=== PATIENT | male | born 1930 | race Caucasian/White ===

== ENCOUNTER → 2018-02-04 | Outpatient (CLI) | payer MEDICARE ==
[~2018-02-04] MED LIST: LEVOTHYROXINE75 MCG PO; SERTRALINE HCL100 MG PO; TERAZOSIN HCL5 MG; TERAZOSIN HCL5 MG PO; TRAZODONE HCL100 MG; TRAZODONE HCL100 MG PO; UNITHROID75 MCG; ZOLOFT100 MG
--- NOTE | 2018-02-04 15:32 | Diagnostic Imaging Report ---
EXAMINATION: Head CT HISTORY: Status post fall. Head trauma, pain, dizziness COMPARISON: Head CT on 08/14/2017 TECHNIQUE: Multidetector axial images were obtained without contrast from the foramen magnum to the vertex . The images were reconstructed using brain and bone algorithms. Thin section brain images were reformatted into coronal and sagittal planes. Intravenous contrast: None. Motion/streaking artifact limits the evaluation of the skull base and posterior cranial fossa. FINDINGS: Parenchyma: 1. 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 Mild chronic microvascular ischemic changes mostly in the bilateral subinsular regions. Otherwise no areas of abnormal density in the brain parenchyma. 2. No mass or hemorrhage. No CT evidence of acute territorial vascular insult. Extra-axial spaces:No abnormal density. No extra-axial fluid collections Brain volume: Generalized brain volume loss with mild bilateral medial temporal/hippocampal predominance, which can be seen in patients with Alzheimer's disease, only in the appropriate clinical setting. Ventricles: No hydrocephalus or displacement. Arteries: No density suggestive of thrombus. Dural sinuses: No abnormal density. Extra-axial spaces: No abnormal density. Foramen magnum: No mass, Chiari malformation, or basilar invagination. Sella: No obvious mass. Paranasal/mastoid sinuses: Imaged portions unremarkable. Skull/Scalp: No lytic or blastic lesions. No fractures. IMPRESSION: 1. No acute posttraumatic intracranial abnormality, particularly no hemorrhage. 2. 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 Signed by: Dr. Milena Vora M.D. on 02/04/2018 3:29 PM
== END ==
LOC: CT 13:38
PROVIDERS: ATTEND Family Medicine
DX: S09.90XA Unspecified injury of head, initial encounter (principal)
CPT/HCPCS: 70450

== ENCOUNTER → 2018-03-01 | Outpatient (CLI) | payer MEDICARE | LOC: RAD 13:15 | PROVIDERS: ATTEND Family Medicine | DX: R10.11 Right upper quadrant pain (principal) ==

== ENCOUNTER 2018-07-30 18:14 | Inpatient (IN) | payer MEDICARE ==
[~2018-07-30] VITALS: Ht 175.3 cm; Wt 70.8 kg
[2018-07-30] MEDS ORDERED: FAMOTIDINE 20 MG/2 ML VIAL IV STA (18:20)
[2018-07-30] MEDS ORDERED: ONDANSETRON HCL INJ 2 MG/ML VIAL IV STA (18:20)
[2018-07-30] MEDS ORDERED: SODIUM CHLORIDE 0.9% 1000ML 2,000 ML IV SCH (18:30)
[2018-07-30] MEDS ORDERED: DIATRIZOATE MEGL/DIATRIZOA SOD 30 ML BTL PO ONE (18:42)
[2018-07-30 18:57] LABS: BASOPHILS % 0.4 % (0.0-1.0); EOSINOPHILS # (AUTO) 0.1 (0.0-0.4); EOSINOPHILS % 0.6 % (0.0-6.0); HEMATOCRIT 36.6 % (38.2-49.6); HEMOGLOBIN 11.9 g/dL (14.0-18.0); LYMPHOCYTES % 17.8 % (18.0-39.1); MEAN CORPUSCULAR HEMOGLOBIN 32.6 pg (28-32); MEAN CORPUSCULAR HGB CONC 32.5 g/dL (31-35); MEAN CORPUSCULAR VOLUME 100.3 fL (81-99); MONOCYTES # (AUTO) 0.7 (0.2-0.8); MONOCYTES % 6.2 % (4.4-11.3); NEUTROPHILS # (AUTO) 8.2 (2.1-6.9); NEUTROPHILS % 74.2 % (38.7-80.0); PLATELET COUNT 157 x10e3/uL (140-360); RED BLOOD COUNT 3.65 x10e6/uL (4.3-5.7); RED CELL DISTRIBUTION WIDTH 13.8 % (11.7-14.4)
[2018-07-30 19:09] LABS: INR 1.22; PROTHROMBIN TIME 14.5 seconds (11.9-14.5)
[2018-07-30 19:10] LABS: PARTIAL THROMBOPLASTIN TIME 28.3 seconds (23.8-35.5)
[2018-07-30 19:10] LABS: BILIRUBIN,URINE NEGATIVE (NEGATIVE); CLARITY,URINE SL CLOUDY (CLEAR); COLOR,URINE YELLOW (YELLOW); KETONES,URINE NEGATIVE (NEGATIVE); LEUKOCYTE ESTERASE ,URINE NEGATIVE (NEGATIVE); NITRITE,URINE NEGATIVE (NEGATIVE); PROTEIN,URINE DIPSTICK 1+ (NEGATIVE); URINE UROBILINOGEN 0.2 mg/dL (0.2 - 1)
[2018-07-30 19:20] LABS: ALBUMIN 3.7 g/dL (3.5-5.0); ALBUMIN/GLOBULIN RATIO 1.2 (0.8-2.0); ANION GAP 14.2 mmol/L (8-16); CALCIUM 10.4 mg/dL (8.4-10.2); CREATININE, SERUM 1.31 mg/dL (0.72-1.25); MAGNESIUM 2.1 MG/DL (1.3-2.1); PHOSPHORUS 3.1 MG/DL (2.3-4.7); POTASSIUM 4.2 mmol/L (3.5-5.1)
[2018-07-30 19:25] LABS: BACTERIA,URINE FEW /HPF; EPITHELIAL CELLS,URINE MODERATE /LPF
[2018-07-30 19:33] LABS: B-TYPE NATRIURETIC PEPTIDE2 314.6 pg/mL (0-100)
[2018-07-30 19:43] LABS: THYROID STIMULATING HORMONE 1.503 uIU/mL (0.350-4.940)
[2018-07-30 20:05] LABS: CREATINE KINASE MB 1.6 ng/mL (0-5.0)
--- NOTE | 2018-07-30 20:32 | Diagnostic Imaging Report ---
EXAMINATION: CHEST SINGLE (PORTABLE) COMPARISON: Chest x-ray 08/14/2017 INDICATION: Shortness of breath DISCUSSION: Frontal view of the chest obtained at 2010 hours. HEART AND MEDIASTINUM: Stable cardiomegaly. Pacemaker wires are stable terminating in the right atrium and right ventricle. LUNGS: Pulmonary vascular markings are normal. No mass. No pneumonia or pulmonary edema. PLEURA: No pleural effusion or pneumothorax. BONES AND SOFT TISSUES: No focal osseous lesion. The soft tissues are normal. IMPRESSION: Stable cardiomegaly. No vascular congestion. No focal osseous lesions. Signed by: Dr. Edd Cartagena MD on 07/30/2018 8:28 PM
--- NOTE | 2018-07-30 20:37 | Diagnostic Imaging Report ---
EXAMINATION: Head CT HISTORY: Altered mental status, syncope COMPARISON: Head CT on 02/04/2018 TECHNIQUE: Multidetector axial images were obtained without contrast from the foramen magnum to the vertex . The images were reconstructed using brain and bone algorithms. Thin section brain images were reformatted into coronal and sagittal planes. Image quality: Motion/streaking artifact limits the evaluation of the skull base and posterior cranial fossa. Dose modulation, iterative reconstruction, and/or weight based adjustment of the mA/kV was utilized to reduce the radiation dose to as low as reasonably achievable. FINDINGS: Parenchyma: 1. Persistent mild chronic microvascular ischemic changes mostly involving the bilateral subinsular regions and chronic lacunar infarct in the right medial thalamus. 2. No mass or hemorrhage. No CT evidence of acute territorial vascular insult. Extra-axial spaces:No abnormal density. No extra-axial fluid collections Brain volume: Persistent generalized volume loss, with particular prominence of the parietal sulci, bilateral temporal horns and bilateral hippocampal atrophy, which can be seen in patient's with Alzheimer's disease in the correct clinical setting. Ventricles: No hydrocephalus or displacement. Arteries: No density suggestive of thrombus. Dural sinuses: No abnormal density. Extra-axial spaces: No abnormal density. Foramen magnum: No mass, Chiari malformation, or basilar invagination. Sella: No obvious mass. Paranasal/mastoid sinuses: Imaged portions unremarkable. Skull/Scalp: No lytic or blastic lesions. No fractures. IMPRESSION: 1. No acute intracranial hemorrhage or cortical infarct. 2. 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 Signed by: Dr. Milena Vora M.D. on 07/30/2018 8:34 PM
--- NOTE | 2018-07-30 20:43 | Diagnostic Imaging Report ---
CT Abdomen And Pelvis with Intravenous Contrast INDICATION: Altered level of consciousness, left lower quadrant pain TECHNIQUE: Thin collimation axial images obtained from the diaphragm to the level of the pubic symphysis following the uneventful administration of 100 cc of low osmolar, nonionic intravenous contrast. RADIATION DOSE: Total DLP: 294.2 mGy*cm Estimated effective dose: (DLP x 0.015 x size factor) mSv CTDIvol has been reviewed. It is below the limits set by the Radiation Protocol Committee (RPC). COMPARISON: None. ABDOMEN FINDINGS: Lung Bases: Lung bases are mildly hyperinflated. There is subsegmental atelectasis in the lower lobes. The descending thoracic aorta is ectatic and contains mural plaque. Maximum diameter is 4.1 cm. The heart is enlarged and contains pacemaker wires and coronary artery calcifications. No pericardial or pleural effusions. Liver: Normal attenuation. Unilocular cysts in the left lobe measure up to 5.4 cm. There are subcentimeter cysts in the right lobe. Gallbladder: Present and appears normal. No biliary ductal dilatation. Pancreas: Normal attenuation without mass or ductal dilatation. Spleen: Normal in size. No evidence of mass.. Adrenal Glands: No evidence for mass. Kidneys: Right: Normal enhancement. Several low attenuating cortical lesions measure up to 15 mm. No enhancing lesions. No hydronephrosis. Left: Normal enhancement. A lower pole cyst measures 18 mm. No enhancing lesions. No hydronephrosis. Lymph Nodes: No enlarged abdominal or retroperitoneal lymph nodes.. Aorta: Diffusely ectatic. The infrarenal aorta has a maximum diameter of 4.1 cm. Calcified and noncalcified plaques are present throughout. PELVIS FINDINGS: Bowel: Stomach: Distended with fluid. No mural thickening. Small Bowel: Multiple fluid-filled small bowel loops in the midabdomen measure up to 3.5 cm in diameter. The transition point is in the lower pelvis (axial image 65). There is no associated mass. There is no evidence of pneumatosis. Distal to this, the small bowel loops are collapsed. There is normal mural enhancement. Large Bowel: Chain sutures in the rectosigmoid colon. The large bowel is concentrated in the right hemiabdomen suggestive of hemicolectomy and primary anastomosis. A few scattered diverticula are present without associated inflammation. Appendix: Not visualized. There is a linear calcification or chain sutures at the base of the cecum. Bladder: The gonsalez are diffusely thickened. A Dunn catheter is present with intraluminal air. The prostate gland measures 5.2 x 5.5 cm. Small amount of pelvic ascites. No loculated fluid collection. No free air. Bones: Scoliosis of the lumbar spine convex to the right with superimposed degenerative changes. There are no lytic or blastic lesions. Soft tissues: Unremarkable. IMPRESSION: 1. Dilated small bowel loops suggestive of high-grade partial small bowel obstruction, possibly due to adhesion. No CT evidence of obstructing mass. 2. 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 3. Low attenuating hepatic and renal lesions are likely cysts. 4. Prostate hypertrophy and bladder wall thickening suggestive of outlet obstruction. 5. Postoperative changes of the large bowel. Mild burden of diverticulosis coli. Nonvisualization of the appendix. Please correlate with surgical history of appendectomy. Signed by: Dr. Edd Cartagena MD on 07/30/2018 8:39 PM
[2018-07-30] MEDS ORDERED: BENZOCAINE/TETRACAINE/BUTAMBEN AERO SPRAY 56 GM CAN TOP ONE (21:00)
[2018-07-30] MEDS ORDERED: ONDANSETRON HCL INJ 2 MG/ML VIAL IV PRN (21:15)
[2018-07-30] MEDS ORDERED: MORPHINE SULFATE 2 MG/ML SYR IV PRN (21:15)
[2018-07-30] MEDS ORDERED: LIDOCAINE VISC 2% SOLN 15 ML UDC ONE (21:19)
[2018-07-30 21:59] VITALS: BP 139/65
[2018-07-30] MEDS ORDERED: SODIUM CHLORIDE 0.9% 50ML 50 ML ONE (22:19)
[2018-07-30] MEDS ORDERED: IOPAMIDOL 370 MG/ML 200 ML INFUS..BTL INJ ONE (22:19)
[2018-07-30] MEDS: SODIUM CHLORIDE 0.9% 1000ML 1,000 ML IV SCH (22:30)
[2018-07-30] MEDS ORDERED: RAMIPRIL5 MG PO (23:37)
[2018-07-31] VITALS (9 sets, daily range): BP systolic 118–182; BP diastolic 53–77
--- NOTE | 2018-07-31 02:23 | Diagnostic Imaging Report ---
EXAM: ABDOMEN-1VIEW (KUB) DATE: 07/31/2018 1:15 AM Time stamp on exam: 1:45 AM INDICATION: NG tube placement COMPARISON: None FINDINGS: LINES/TUBES: NG tube is visualized with tip at the level of the lower/distal esophagus. Advancement is recommended BOWEL PATTERN: No evidence for obstruction. SOFT TISSUES: There is opacification of the bilateral renal collecting systems, distal ureters and partially decompressed bladder. LUNG BASES: The lung bases are clear. BONES: Severe degenerative changes of the lower thoracic and lumbar spine with severe dextrorotoscoliosis. IMPRESSION: NG tube remains within the lower thorax. Advancement into the left upper quadrant is recommended Signed by: Dr. Jay Arevalo M.D. on 07/31/2018 2:20 AM
[2018-07-31 05:18] LABS: BASOPHILS % 0.1 % (0.0-1.0); HEMATOCRIT 35.7 % (38.2-49.6); HEMOGLOBIN 11.9 g/dL (14.0-18.0); LYMPHOCYTES # (AUTO) 0.6 (1.0-3.2); LYMPHOCYTES % 4.3 % (18.0-39.1); MEAN CORPUSCULAR HEMOGLOBIN 33.1 pg (28-32); MEAN CORPUSCULAR HGB CONC 33.3 g/dL (31-35); MEAN CORPUSCULAR VOLUME 99.4 fL (81-99); MONOCYTES # (AUTO) 0.7 (0.2-0.8); MONOCYTES % 4.7 % (4.4-11.3); NEUTROPHILS # (AUTO) 12.8 (2.1-6.9); NEUTROPHILS % 89.9 % (38.7-80.0); PLATELET COUNT 140 x10e3/uL (140-360); RED BLOOD COUNT 3.59 x10e6/uL (4.3-5.7); RED CELL DISTRIBUTION WIDTH 13.9 % (11.7-14.4)
[2018-07-31 05:41] LABS: ALANINE AMINOTRANSFERASE 11 IU/L (0-55); ALBUMIN 3.7 g/dL (3.5-5.0); ALBUMIN/GLOBULIN RATIO 1.3 (0.8-2.0); ALKALINE PHOSPHATASE 61 IU/L (40-150); ANION GAP 14.1 mmol/L (8-16); BLOOD UREA NITROGEN 16 mg/dL (7-26); BUN/CREATININE RATIO 16 (6-25); CARBON DIOXIDE 24 mmol/L (22-29); CHLORIDE 104 mmol/L (98-107); CREATININE, SERUM 1.03 mg/dL (0.72-1.25); EST GLOMERULAR FILTRATION RATE > 60 ML/MIN (60-); GLUCOSE 137 mg/dL (74-118); POTASSIUM 4.1 mmol/L (3.5-5.1); SODIUM 138 mmol/L (136-145)
[2018-07-31 06:06] LABS: CREATINE KINASE MB 1.8 ng/mL (0-5.0)
--- NOTE | 2018-07-31 06:37 | Diagnostic Imaging Report ---
EXAM: ABDOMEN COMP INCL UPR or DECUB DATE: 07/31/2018 8:00 AM Time stamp on exam: 4:42 AM INDICATION: Partial small bowel obstruction. COMPARISON: 07/31/2018 at 1:45 AM FINDINGS: LINES/TUBES: NG tube is visualized with tip at the level of the gastric body. BOWEL PATTERN: No evidence for obstruction. SOFT TISSUES: There is opacification of the bilateral renal collecting systems, distal ureters and partially decompressed bladder. Surgical sutures noted at the level of the rectum. LUNG BASES: The lung bases are clear. BONES: Severe degenerative changes of the lower thoracic and lumbar spine with severe dextrorotoscoliosis. IMPRESSION: 1. NG tube is now in optimal position. 2. No evidence of obstructive bowel gas pattern Signed by: Dr. Jay Arevalo M.D. on 07/31/2018 6:34 AM
[2018-07-31 07:28] LABS: MAGNESIUM 1.9 MG/DL (1.3-2.1)
--- NOTE | 2018-07-31 07:28 | History and Physical ---
An 87-year-old male comes in with confusion and abdominal pain and cramping. HISTORY OF PRESENT ILLNESS: This is an 87-year-old gentleman with a history of PTSD, history of hypertension, history of hypothyroidism, was in his usual state of health until 1 day prior to admission. The patient started having abdominal pain, nausea and cramping. The patient vomited several times and had sharp upper suprapubic and left lower quadrant pain. The patient was brought to the emergency room and was admitted for small-bowel obstruction. The patient's hemodynamics before arrival to the floor was blood pressure was 70/40, heart rate 60 and with a paced rhythm, O2 on nasal cannula. The patient came in, and once the fluid was resuscitated, the patient's blood pressure did come up. PAST MEDICAL HISTORY: History of hypothyroidism, history of hypertension, history of posttraumatic stress disorder. SURGICAL HISTORY: Cannot be taken, but the patient had cataract surgery, history of diverticulitis and colon resection, history of multiple cysts removed, history of tonsillectomy, and skin cancer removal. The patient also had pacemaker placement too. MEDICATIONS 1. Levothyroxine 75 mcg. 2. Ramipril 1.25 mg. 3. Sertraline 100 mg daily. SOCIAL HISTORY: Lives with who is the primary logistics analytics manager. The patient also has a history of PTSD. No smoking. No ETOH. Has dementia. FAMILY HISTORY: Noncontributory. REVIEW OF SYSTEMS: Unable to obtain. The patient has an NG tube and also has dementia. PHYSICAL EXAMINATION VITAL SIGNS: The patient's initial vital signs are temperature is 100.7. Right now, blood pressure is 118/53, pulse ox 96%. HEENT: Normocephalic and atraumatic. Pupils reactive to light and accommodation. CV: S1 and S2 normal. Regular rate and rhythm. ABDOMEN: Soft. Bowel sounds are positive right now. Tenderness in the suprapubic and left lower quadrant. EXTREMITIES: No clubbing. No cyanosis. No edema. LABORATORY VALUES: Initial white count of 11,000 and right now is 14,000, hemoglobin of 11.9. Neutrophil count is 89.9, which has jumped yesterday from today. Coags are normal. Chemistries: Sodium is 139, potassium 4.2, creatinine of 1.3 on arrival. Lactic acid is 14.9. BNP was 314.6. TSH is 1.403. Urine showed negative leukocytes and esterase. Nitrate was negative, hyaline casts and also urine bacteria. The patient's initial chest x-ray showed stable cardiomegaly. Abdominal CT scan shows dilated small loops suggestive of high-grade partial small-bowel obstruction possibly secondary to adhesions. No CT enhancing masses. Fusiform aneurysmal dilatation. Prostate hypertrophy and low attenuation of renal cysts. There is mild diverticulosis too. The patient's repeat abdominal x-ray shows NG tube was suboptimal and now is in optimal position. No evidence of obstructive bowel pattern. PLAN: Start the patient on some Levaquin and Flagyl. He has multiple allergies, including amoxicillin, cephalexin, and acid. Will discontinue his medications right now. NG tube has been inserted. Consult with Dr. Torres has been done. Will also order magnesium, amylase and lipase. Further recommendations per clinical course. Will continue monitoring the patient along with surgery. Job#: [id number] MELINDA
[2018-07-31] MEDS: LEVOFLOXACIN 250MG/D5W 50ML 50 ML IV SCH (08:56)
[2018-07-31] MEDS ORDERED: ACETAMINOPHEN 1000 MG/100 ML IV PRN (09:00)
--- NOTE | 2018-07-31 12:13 | Diagnostic Imaging Report ---
EXAM: Abdomen 1 Views INDICATION: \S\NG TUBE PLACEMENT COMPARISON: KUB 07/31/2018 at 442 FINDINGS: Mild amount of stool in the colon. No dilated loops of small bowel. Bowel sutures in the low pelvis. Partially visualized NG tube with tip at the GE junction. No renal calculi. Contrast in the bladder with a partially visualized Dunn catheter. No abnormal soft tissue masses. Severe degenerative changes with scoliotic changes in the lumbar spine and pelvis. IMPRESSION: NG tube tip at the GE junction. Signed by: Dr. Daniel Orta M.D. on 07/31/2018 12:10 PM
[2018-07-31] MEDS: METRONIDAZOLE 500MG/NS 100ML 100 ML IV SCH ×3 (12:58→23:43)
[2018-07-31 13:50] LABS: CREATINE KINASE MB 1.4 ng/mL (0-5.0)
--- NOTE | 2018-07-31 14:48 | Diagnostic Imaging Report ---
Exam: Abdominal film Clinical History: NG tube placement Comparison: Earlier 07/31/2018 DISCUSSION: Limited exam secondary to underpenetration and motion artifact. Nasogastric tube is again visualized. The tip is not visualized caudal to the distal esophagus. Otherwise unchanged appearance of the bowel gas pattern and skeletal structures. IMPRESSION: Nasogastric tube is difficult to visualize, though the tip likely lies at the gastroesophageal junction. Signed by: Dr. Theo Tafoya M.D. on 07/31/2018 2:45 PM
--- NOTE | 2018-07-31 16:58 | Diagnostic Imaging Report ---
EXAM: Abdomen 1 Views INDICATION: \S\NG TUBE PLACEMENT COMPARISON: NG tube 07/31/2018 at 1421 and 1131 FINDINGS: Mild amount of stool in the colon. No dilated loops of small bowel. NG tube in the stomach with side-port just below the level of the diaphragm. No renal calculi. No abnormal soft tissue masses. Bowel sutures in the pelvis. Severe degenerative changes in the lumbar spine and pelvis. IMPRESSION: NG tube in the stomach with side-port just below the level of the diaphragm. Signed by: Dr. Daniel Orta M.D. on 07/31/2018 4:54 PM
[2018-07-31] MEDS: SODIUM CHLORIDE 0.9% 1000ML 1,000 ML IV SCH ×2 (17:49→23:35)
[2018-07-31] MEDS: BISACODYL 10 MG SUPP PR SCH (20:01)
[2018-08-01] VITALS (7 sets, daily range): BP systolic 133–168; BP diastolic 73–84
[2018-08-01] MEDS: MORPHINE SULFATE INJ 4 MG/ML INJ IV PRN ×2 (01:20→10:20)
[2018-08-01 05:15] LABS: BASOPHILS % 0.2 % (0.0-1.0); EOSINOPHILS # (AUTO) 0.1 (0.0-0.4); EOSINOPHILS % 0.5 % (0.0-6.0); HEMOGLOBIN 11.7 g/dL (14.0-18.0); LYMPHOCYTES # (AUTO) 1.6 (1.0-3.2); LYMPHOCYTES % 13.2 % (18.0-39.1); MEAN CORPUSCULAR HEMOGLOBIN 32.8 pg (28-32); MEAN CORPUSCULAR HGB CONC 31.6 g/dL (31-35); MEAN CORPUSCULAR VOLUME 103.6 fL (81-99); MONOCYTES # (AUTO) 0.9 (0.2-0.8); MONOCYTES % 7.3 % (4.4-11.3); NEUTROPHILS # (AUTO) 9.5 (2.1-6.9); NEUTROPHILS % 78.1 % (38.7-80.0); PLATELET COUNT 114 x10e3/uL (140-360); RED BLOOD COUNT 3.57 x10e6/uL (4.3-5.7); RED CELL DISTRIBUTION WIDTH 13.9 % (11.7-14.4)
[2018-08-01] MEDS: METRONIDAZOLE 500MG/NS 100ML 100 ML IV SCH ×3 (05:31→18:10)
[2018-08-01 05:52] LABS: ALANINE AMINOTRANSFERASE 9 IU/L (0-55); ALBUMIN 3.3 g/dL (3.5-5.0); ALBUMIN/GLOBULIN RATIO 1.1 (0.8-2.0); ALKALINE PHOSPHATASE 55 IU/L (40-150); ANION GAP 10.5 mmol/L (8-16); BLOOD UREA NITROGEN 14 mg/dL (7-26); BUN/CREATININE RATIO 17 (6-25); CALCIUM 9.6 mg/dL (8.4-10.2); CARBON DIOXIDE 25 mmol/L (22-29); CHLORIDE 108 mmol/L (98-107); CREATININE, SERUM 0.83 mg/dL (0.72-1.25); EST GLOMERULAR FILTRATION RATE > 60 ML/MIN (60-); GLUCOSE 83 mg/dL (74-118); POTASSIUM 3.5 mmol/L (3.5-5.1); SODIUM 140 mmol/L (136-145)
[2018-08-01] MEDS: LEVOFLOXACIN 250MG/D5W 50ML 50 ML IV SCH (08:56)
[2018-08-01] MEDS: BISACODYL 10 MG SUPP PR SCH (08:57)
[2018-08-01] MEDS: SERTRALINE HCL 100 MG TAB PO ONE ×2 (10:15→12:00)
[2018-08-01] MEDS: SODIUM CHLORIDE 0.9% 1000ML 1,000 ML IV SCH (11:56)
--- NOTE | 2018-08-01 17:24 | Diagnostic Imaging Report ---
EXAM: Abdomen 3 Views, including PA chest INDICATION: \S\SBO \[id number] \S\1600 COMPARISON: KUB 07/31/2018 FINDINGS: Mild amount of stool in the colon. Mild progressive distention of a few loops of bowel mainly in the right abdomen. Surgical sutures overlying the pelvis at midline. No renal calculi. No abnormal soft tissue masses. Advanced degenerative changes in the lumbar spine and pelvis. Scoliosis. Partially visualized pacer leads overlying the right atrial appendage and right ventricle. Mild enlargement of the cardiac silhouette. Tortuous thoracic aorta. Bibasilar atelectasis. IMPRESSION: 1. Progressive mild distention of the bowel, mainly in the right abdomen may represent ileus or early obstruction. 2. NG tube has been removed. Signed by: Dr. Uzma Gilman M.D. on 08/01/2018 5:21 PM
[2018-08-02] VITALS (7 sets, daily range): BP systolic 126–173; BP diastolic 58–87
[2018-08-02] MEDS: METRONIDAZOLE 500MG/NS 100ML 100 ML IV SCH ×4 (00:50→17:53)
[2018-08-02] MEDS: MORPHINE SULFATE INJ 4 MG/ML INJ IV PRN ×3 (00:50→23:42)
[2018-08-02] MEDS: SODIUM CHLORIDE 0.9% 1000ML 1,000 ML IV SCH ×2 (03:26→17:52)
[2018-08-02] MEDS: HYDRALAZINE HCL 20 MG/ML VIAL IV PRN (05:21)
[2018-08-02 05:26] LABS: BASOPHILS % 0.4 % (0.0-1.0); EOSINOPHILS # (AUTO) 0.1 (0.0-0.4); EOSINOPHILS % 0.8 % (0.0-6.0); HEMATOCRIT 33.3 % (38.2-49.6); LYMPHOCYTES # (AUTO) 1.5 (1.0-3.2); LYMPHOCYTES % 15.6 % (18.0-39.1); MEAN CORPUSCULAR HEMOGLOBIN 32.9 pg (28-32); MEAN CORPUSCULAR VOLUME 99.7 fL (81-99); MONOCYTES # (AUTO) 0.7 (0.2-0.8); MONOCYTES % 7.4 % (4.4-11.3); NEUTROPHILS % 75.4 % (38.7-80.0); PLATELET COUNT 120 x10e3/uL (140-360); RED BLOOD COUNT 3.34 x10e6/uL (4.3-5.7); RED CELL DISTRIBUTION WIDTH 13.8 % (11.7-14.4)
[2018-08-02 05:47] LABS: ALANINE AMINOTRANSFERASE 11 IU/L (0-55); ALBUMIN 3.2 g/dL (3.5-5.0); ALBUMIN/GLOBULIN RATIO 1.1 (0.8-2.0); ALKALINE PHOSPHATASE 52 IU/L (40-150); ANION GAP 11.5 mmol/L (8-16); BLOOD UREA NITROGEN 14 mg/dL (7-26); BUN/CREATININE RATIO 18 (6-25); CALCIUM 9.4 mg/dL (8.4-10.2); CARBON DIOXIDE 24 mmol/L (22-29); CHLORIDE 109 mmol/L (98-107); EST GLOMERULAR FILTRATION RATE > 60 ML/MIN (60-); GLUCOSE 77 mg/dL (74-118); MAGNESIUM 1.7 MG/DL (1.3-2.1); POTASSIUM 3.5 mmol/L (3.5-5.1); SODIUM 141 mmol/L (136-145)
[2018-08-02] MEDS ORDERED: MORPHINE SULFATE 2 MG/ML SYR ONE (08:11)
[2018-08-02] MEDS: LEVOFLOXACIN 250MG/D5W 50ML 50 ML IV SCH (08:16)
[2018-08-03] VITALS (7 sets, daily range): BP systolic 97–178; BP diastolic 51–89
[2018-08-03] MEDS: METRONIDAZOLE 500MG/NS 100ML 100 ML IV SCH ×5 (00:06→23:43)
[2018-08-03 05:18] LABS: BASOPHILS % 0.2 % (0.0-1.0); EOSINOPHILS # (AUTO) 0.1 (0.0-0.4); HEMATOCRIT 32.4 % (38.2-49.6); HEMOGLOBIN 10.8 g/dL (14.0-18.0); LYMPHOCYTES # (AUTO) 1.6 (1.0-3.2); LYMPHOCYTES % 19.2 % (18.0-39.1); MEAN CORPUSCULAR HEMOGLOBIN 32.6 pg (28-32); MEAN CORPUSCULAR HGB CONC 33.3 g/dL (31-35); MEAN CORPUSCULAR VOLUME 97.9 fL (81-99); MONOCYTES # (AUTO) 0.7 (0.2-0.8); MONOCYTES % 8.8 % (4.4-11.3); NEUTROPHILS # (AUTO) 5.9 (2.1-6.9); NEUTROPHILS % 70.1 % (38.7-80.0); PLATELET COUNT 132 x10e3/uL (140-360); RED BLOOD COUNT 3.31 x10e6/uL (4.3-5.7); RED CELL DISTRIBUTION WIDTH 13.2 % (11.7-14.4)
[2018-08-03 05:35] LABS: ANION GAP 12.6 mmol/L (8-16); BLOOD UREA NITROGEN 12 mg/dL (7-26); BUN/CREATININE RATIO 16 (6-25); CALCIUM 9.2 mg/dL (8.4-10.2); CARBON DIOXIDE 23 mmol/L (22-29); CHLORIDE 106 mmol/L (98-107); CREATININE, SERUM 0.74 mg/dL (0.72-1.25); EST GLOMERULAR FILTRATION RATE > 60 ML/MIN (60-); GLUCOSE 84 mg/dL (74-118); POTASSIUM 3.6 mmol/L (3.5-5.1); SODIUM 138 mmol/L (136-145)
[2018-08-03] MEDS: HYDRALAZINE HCL 20 MG/ML VIAL IV PRN ×2 (08:16→20:45)
[2018-08-03] MEDS: SODIUM CHLORIDE 0.9% 1000ML 1,000 ML IV SCH (08:16)
[2018-08-03] MEDS: LEVOFLOXACIN 250MG/D5W 50ML 50 ML IV SCH (08:16)
[2018-08-03] MEDS ORDERED: CAMPHOR TP SCH (18:15)
[2018-08-03] MEDS ORDERED: MENTHOL TP SCH (18:15)
[2018-08-03] MEDS ORDERED: PHENOL TP SCH (18:15)
[2018-08-03] MEDS ORDERED: SOD PHOSPHATE/SOD BIPHOSPHATE ENEMA 132 ML BTL PR ONE (19:00)
[2018-08-03] MEDS: MUSCLE RUB TOP SCH (20:47)
[2018-08-03] MEDS ORDERED: CAMPHOR TP PRN (21:00)
[2018-08-03] MEDS ORDERED: MENTHOL TP PRN (21:00)
[2018-08-03] MEDS ORDERED: PHENOL TP PRN (21:00)
[2018-08-04] VITALS (9 sets, daily range): BP systolic 112–187; BP diastolic 53–87
[2018-08-04 05:46] LABS: BASOPHILS % 0.3 % (0.0-1.0); EOSINOPHILS % 0.3 % (0.0-6.0); HEMATOCRIT 31.8 % (38.2-49.6); HEMOGLOBIN 10.7 g/dL (14.0-18.0); LYMPHOCYTES # (AUTO) 1.3 (1.0-3.2); LYMPHOCYTES % 19.2 % (18.0-39.1); MEAN CORPUSCULAR HEMOGLOBIN 32.7 pg (28-32); MEAN CORPUSCULAR HGB CONC 33.6 g/dL (31-35); MEAN CORPUSCULAR VOLUME 97.2 fL (81-99); MONOCYTES # (AUTO) 0.8 (0.2-0.8); MONOCYTES % 10.7 % (4.4-11.3); NEUTROPHILS # (AUTO) 4.8 (2.1-6.9); NEUTROPHILS % 69.1 % (38.7-80.0); PLATELET COUNT 148 x10e3/uL (140-360); RED BLOOD COUNT 3.27 x10e6/uL (4.3-5.7); RED CELL DISTRIBUTION WIDTH 13.5 % (11.7-14.4)
[2018-08-04] MEDS: METRONIDAZOLE 500MG/NS 100ML 100 ML IV SCH ×3 (05:59→18:00)
[2018-08-04 06:05] LABS: ANION GAP 11.3 mmol/L (8-16); BLOOD UREA NITROGEN 10 mg/dL (7-26); BUN/CREATININE RATIO 13 (6-25); CALCIUM 9.3 mg/dL (8.4-10.2); CARBON DIOXIDE 23 mmol/L (22-29); CHLORIDE 104 mmol/L (98-107); CREATININE, SERUM 0.79 mg/dL (0.72-1.25); EST GLOMERULAR FILTRATION RATE > 60 ML/MIN (60-); GLUCOSE 91 mg/dL (74-118); MAGNESIUM 1.7 MG/DL (1.3-2.1); POTASSIUM 3.3 mmol/L (3.5-5.1); SODIUM 135 mmol/L (136-145)
[2018-08-04] MEDS ORDERED: POTASSIUM CHLORIDE 20 MEQ TAB CR PO STA (07:53)
[2018-08-04] MEDS: LEVOFLOXACIN 250MG/D5W 50ML 50 ML IV SCH (08:14)
[2018-08-04] MEDS: MUSCLE RUB TOP SCH ×3 (09:00→20:20)
[2018-08-04] MEDS: SODIUM CHLORIDE 0.9% 1000ML 1,000 ML IV SCH (14:00)
[2018-08-04] MEDS: HYDRALAZINE HCL 20 MG/ML VIAL IV PRN (20:15)
[2018-08-05] VITALS (7 sets, daily range): BP systolic 104–161; BP diastolic 65–82
[2018-08-05] MEDS: METRONIDAZOLE 500MG/NS 100ML 100 ML IV SCH ×3 (00:22→12:14)
[2018-08-05 08:02] LABS: ANION GAP 11.7 mmol/L (8-16); BLOOD UREA NITROGEN 8 mg/dL (7-26); BUN/CREATININE RATIO 11 (6-25); CALCIUM 9.3 mg/dL (8.4-10.2); CARBON DIOXIDE 22 mmol/L (22-29); CHLORIDE 107 mmol/L (98-107); CREATININE, SERUM 0.71 mg/dL (0.72-1.25); EST GLOMERULAR FILTRATION RATE > 60 ML/MIN (60-); GLUCOSE 87 mg/dL (74-118); POTASSIUM 3.7 mmol/L (3.5-5.1); SODIUM 137 mmol/L (136-145)
[2018-08-05] MEDS: MUSCLE RUB TOP SCH ×3 (09:26→21:00)
[2018-08-05] MEDS: LEVOFLOXACIN 250MG/D5W 50ML 50 ML IV SCH (09:26)
[2018-08-05] MEDS: SODIUM CHLORIDE 0.9% 1000ML 1,000 ML IV SCH ×2 (12:14→21:29)
[2018-08-05] MEDS: METRONIDAZOLE 500 MG TAB PO SCH (17:49)
[2018-08-06 00:21] VITALS: BP 126/62
[2018-08-06 04:30] VITALS: BP 131/64
[2018-08-06] MEDS: METRONIDAZOLE 500 MG TAB PO SCH ×2 (06:00)
[2018-08-06 07:15] VITALS: BP 147/75
[2018-08-06 07:35] VITALS: BP 147/75
[2018-08-06] MEDS: MUSCLE RUB TOP SCH (09:18)
[2018-08-06 11:55] VITALS: BP 137/78
--- NOTE | 2018-08-06 12:18 | Diagnostic Imaging Report ---
PROCEDURE:X-RAY ABDOMEN - KUB COMPARISON:KUB 08/01/18. INDICATIONS:SMALL BOWEL OBSTRUCTION FINDINGS: Air is noted in the colon with no significant small bowel distension. Bowel anastomosis is present in the right pelvis. There are no calcifications projected over the renal shadows, expected course of the ureters or bladder. There are no acute osseous abnormalities. The lung bases are clear. CONCLUSION: Air filled colonic loops without evidence of small bowel dilatation to suggest high grade obstruction. Dictated by: ANABELA VANN M.D. on 08/02/2018 at 10:43 Electronically approved by: ANABELA VANN M.D. on 08/02/2018 at 10:43
[2018-08-06] MEDS ORDERED: LEVOFLOXACIN 250 MG TAB PO SCH (13:30)
--- OUTSIDE RECORDS SUMMARY | 2018-08-22 07:11 | XMS REPORT ---
Author Author [facility] Address Unknown Phone Unavailable Care Team Providers Care Cfd Engineer Name Role Phone GLORIA BLACKWELL Unavailable Unavailable Payers Payer Name Policy Type Policy Number Effective Date Expiration Date Problems This patient has no known problems. Allergies, Adverse Reactions, Alerts Allergy Name Allergy Type Status Severity Reaction(s) Onset Date Inactive Date Treating Clinician Comments sertraline DA Active MO 2016-02-04 00:00:00 lorazepam DA Active U 2016-02-03 00:00:00 haloperidol DA Active U 2016-02-03 00:00:00 methylprednisolone DA Active U 2016-02-03 00:00:00 cephalexin DA Active U 2016-02-03 00:00:00 clavulanic acid DA Active U 2016-02-03 00:00:00 propofol DA Active U 2016-02-03 00:00:00 amoxicillin DA Active U 2016-02-03 00:00:00 terazosin DA Active U 2016-02-03 00:00:00 trazodone DA Active U 2016-02-03 00:00:00 tamsulosin DA Active U 2016-02-03 00:00:00 pneumococcal vaccine DA Active U 2016-02-03 00:00:00 FLU VACINE DA Active U 2016-02-03 00:00:00 Medications This patient has no known medications. Results Test Description Test Time Test Comments Text Results Atomic Results Result Comments ABDOMEN-1VIEW (KUB) 2018-08-02 10:43:00 [facility] [address] [place] [address] Patient Name: RISHI JOHNS MR #: [id number] : 1930 Age/Sex: 87/M Req #: [id number] Adm Physician: GLORIA BLACKWELL MD Ordered by : GLORIA BLACKWELL MD Report #: [id number] Location: [facility]/SURG3 Room/Bed: [facility] Procedure: [id number] DX/ABDOMEN-1VIEW (KUB) Exam Date: 08/02/18 Exam Time: 0840 REPORT STATUS: Signed PROCEDURE: X-RAY ABDOMEN - KUB COMPARISON: KUB 08/01/18. INDICATIONS: SMALL BOWEL OBSTRUCTION FINDINGS: Air is noted in the colon with no significant small bowel distension. Bowel anastomosis is present in the right pelvis. There are no calcifications projected over the renal shadows, expected course of the ureters or bladder. There are no acute osseous abnormalities. The lung bases are clear. CONCLUSION: Air filled colonic loops without evidence of small bowel dilatation to suggest high grade obstruction. Dictated by: ANABELA VANN M.D. on 2017 at 10:43 Electronically approved by: ANABELA VANN M.D. on 08/02/2018 at 10:43 Dictated By: ANABELA VANN MD 1043 Transcribed By: BETHANY on 08/02/18 1043 COPY TO: GLORIA BLACKWELL MD ABDOMEN ACUTE SERIES W/PA CXR 2018-08-01 17:18:00 [place] [address] Patient Name: RISHI JOHNS MR #: [id number] : 1930 Age/Sex: 87/ M Req #: [id number] Adm Physician: GLORIA BLACKWELL MD Ordered by: LEANDRO HIGGINS MD Report #: [id number] Location: MED/SURG3 Room/Bed: [facility] Procedure: [id number] DX/ABDOMEN ACUTE SERIES W/PA CXR Exam Date: 08/01/18 Exam Time: 1600 REPORT STATUS: Signed EXAM: Abdomen 3 Views, including PA chest INDICATION: COMPARISON: KUB 07/31/2018 FINDINGS: Mild amount of stool in the colon. Mild progressive distention of a few loops of bowel mainly in the right abdomen. Surgical sutures overlying the pelvis at midline. No renal calculi. No abnormal soft tissue masses. Advanced degenerative changes in the lumbar spine and pelvis. Scoliosis. Partially visualized pacer leads overlying the right atrial appendage and right ventricle. Mild enlargement of the cardiac silhouette. Tortuous thoracic aorta. Bibasilar atelectasis. IMPRESSION: 1. Progressive mild distention of the bowel, mainly in the right abdomen may represent ileus or early obstruction. 2. NG tube has been removed. Signed by: Dr. Uzma Gilman M.D. on 08/01/2018 5:21 PM Dictated By: UZMA GILMAN MD 172 COPY TO: LEANDRO HIGGINS MD ABDOMEN-1VIEW (KUB) 2018-07-31 16:53:00 [place] [address] Patient Name: RISHI JOHNS MR #: [id number] : 1930 Age/Sex: 87/M Req #: [id number] Adm Physician: GLORIA BLACKWELL MD Ordered by : GLORIA BLACKWELL MD Report #: [id number] Location: MED/SURG3 Room/Bed: 284[facility] Procedure: [id number] DX/ABDOMEN-1VIEW (KU) Exam Date: Exam Time: REPORT STATUS: Signed EXAM: Abdomen 1 Views INDICATION: S NG TUBE PLACEMENT COMPARISON: NG tube 07/31/2018 at 1421 and 1131 FINDINGS: Mild amount of stool in the colon. No dilated loops of small bowel. NG tube in the stomach with side- port just below the level of the diaphragm. No renal calculi. No abnormal soft tissue masses. Bowel sutures in the pelvis. Severe degenerative changes in the lumbar spine and pelvis. IMPRESSION: NG tube in the stomach with side-port just below the level of the diaphragm. Signed by: Dr. Daniel Bermudez M.D. on 07/31/2018 4:54 PM Dictated By: DANIEL BERMUDEZ MD 53 Transcribed By: MELISSA on 07/31/181653 COPY TO: GLORIA BLACKWELL MD ABDOMEN-1VIEW (KU) 2018-07-31 14:42:00 [place] [address] Patient Name: RISHI JOHNS MR #: [id number] : 1930 Age/Sex: 87/M Req #: [id number] Adm Physician: GLORIA BLACKWELL MD Ordered by : GLORIA BLACKWELL MD Report #: [id number] Location: MED/SURG3 Room/Bed: [facility] Procedure: DX/ABDOMEN-1VIEW (KUB) Exam Date: 07/31/18 Exam Time: 1410 REPORT STATUS: Signed Exam: Abdominal film Clinical History: NG tube placement Comparison: Earlier 07/31/2018 DISCUSSION: Limited exam secondary to underpenetration and motion artifact. Nasogastric tube is again visualized. The tip is not visualized caudal to the distal esophagus. Otherwise unchanged appearance of the bowel gas pattern and skeletal structures. IMPRESSION: Nasogastric tube is difficult to visualize, though the tip likely lies at the gastroesophageal junction. Signed by: Dr. Saurav Tafoya M.D. on 07/31/2018 2:45 PM Dictated By: SAURAV TAFOYA MD 1445 Transcribed By: MELISSA on 07/31/18 1445 COPY TO: GLORIA BLACKWELL MD ABDOMEN-1VIEW (KUB) 2018-07-31 12:08:00 [place] [address] Patient Name: RISHI JOHNS MR #: [id number] : 1930 Age/Sex: 87/M Req #: [id number] Adm Physician: GLORIA BLACKWELL MD Ordered by : GLORIA BLACKWELL MD Report #: [id number] Location: MED/SURG3 Room/Bed: [facility] Procedure: DX/ABDOMEN-1VIEW (KUB) Exam Date: 07/31/18 Exam Time: 1130 REPORT STATUS: Signed EXAM: Abdomen 1 Views INDICATION: S NG TUBE PLACEMENT COMPARISON: KUB 07/31/2018 at 442 FINDINGS: Mild amount of stool in the colon. No dilated loops of small bowel. Bowel sutures in the low pelvis. Partially visualized NG tube with tip at the GE junction. No renal calculi. Contrast in the bladder with a partially visualized Dunn catheter. No abnormal soft tissue masses. Severe degenerative changes with scoliotic changes in the lumbar spine and pelvis. IMPRESSION: NG tube tip at the GE junction. Signed by: Dr. Daniel Bermudez M.D. on 07/31/2018 12:10 PM Dictated By: DANIEL BERMUDEZ MD 1210 COPY TO: GLORIA BLACKWELL MD ABDOMEN COMP INCL UPR or DECUB 2018-07-31 06:32:00 [place] [address] Patient Name: RISHI JOHNS MR #: [id number] : 1930 Age/Sex: 87/ M Req #: [id number] Adm Physician: GLORIA BLACKWELL MD Ordered by: IRINA GARRETT MD Report #: [id number] Location: MED/SURG3 Room/Bed: [facility] Procedure: [id number] DX/ABDOMEN COMP INCL UPR or DECUB Exam Date: 07/31/18 Exam Time : 0450 REPORT STATUS: Signed EXAM: ABDOMEN COMP INCL UPR or DECUB DATE: 07/31/2018 8:00 AM Time stamp on exam: 4:42 AM INDICATION: Partial small bowel obstruction. COMPARISON: 07/31/2018 at 1:45 AM FINDINGS : LINES/TUBES: NG tube is visualized with tip at the level of the gastric body. BOWEL PATTERN: No evidence for obstruction. SOFT TISSUES: There is opacification of the bilateral renal collecting systems, distal ureters and partially decompressed bladder. Surgical sutures noted at the level of the rectum. LUNG BASES: The lung bases are clear. BONES: Severe degenerative changes of the lower thoracic and lumbar spine with severe dextrorotoscoliosis. IMPRESSION: 1. NG tube is now in optimal position. 2. No evidence of obstructive bowel gas pattern Signed by: Dr. Jay Arevalo M.D. on 07/31/2018 6:34 AM Dictated By: JAY VELEZ MD 3 Transcribed By: MELISSA on 07/31/18633 COPY TO: IRINA GARRETT MD ABDOMEN-1VIEW ([facility]) 2018-07-31 02:19:00 [place] [address] Patient Name: RISHI JOHNS MR #: [id number] : 1930 Age/Sex: 87/M Req #: [id number] Adm Physician: GLORIA BLACKWELL MD Ordered by : GLORIA BLACKWELL MD Report #: [id number] Location: MED/SURG3 Room/Bed: [facility] Procedure: [id number] DX/ABDOMEN-1VIEW (KU) Exam Date: 07/31/18 Exam Time: 0145 REPORT STATUS: Signed EXAM: ABDOMEN-1VIEW ([facility]) DATE: 07/31/2018 1:15 AM Time stamp on exam: 1:45 AM INDICATION: NG tube placement COMPARISON: None FINDINGS: LINES/TUBES: NG tube is visualized with tip at the level of the lower/distal esophagus. Advancement is recommended BOWEL PATTERN: No evidence for obstruction. SOFT TISSUES: There is opacification of the bilateral renal collecting systems, distal ureters and partially decompressed bladder. LUNG BASES: The lung bases are clear. BONES: Severe degenerative changes of the lower thoracic and lumbar spine with severe dextrorotoscoliosis. IMPRESSION: NG tube remains within the lower thorax. Advancement into the left upper quadrant is recommended Signed by: Dr. Jay Arevalo M.D. on 07/31/2018 2:20 AM Dictated By: JAY VELEZ MD 9 COPY TO: GLORIA BLACKWELL MD CT BRAIN WO 2018-07-30 20:30:00 [place] [address] Patient Name: RISHI JOHNS MR #: [id number] : 1930 Age/Sex: 87/M Req #: [id number] Adm Physician: Ordered by: FAUSTINA KWONG MD Report #: [id number] Location: ER Room/Bed: Procedure: [id number] CT/CT BRAIN WO Exam Date: 07/30/18 Exam Time: 1999 REPORT STATUS: Signed EXAMINATION: Head CT HISTORY: Altered mental status, syncope COMPARISON: Head CT on 02/04/2018 TECHNIQUE: Multidetector axial images were obtained without contrast from the foramen magnum to the vertex . The images were reconstructed using brain and bone algorithms. Thin section brain images were reformatted into coronal and sagittal planes. Image quality: Motion/streaking artifact limits the evaluation of the skull base and posterior cranial fossa. Dose modulation , iterative reconstruction, and/or weight based adjustment of the mA/kV was utilized to reduce the radiation dose to as low as reasonably achievable. FINDINGS: Parenchyma: 1. Persistent mild chronic microvascular ischemic changes mostly involving the bilateral subinsular regions and chronic lacunar infarct in the right medial thalamus. 2. No mass or hemorrhage. No CT evidence of acute territorial vascular insult. Extra-axial spaces:No abnormal density. No extra-axial fluid collections Brain volume: Persistent generalized volume loss, with particular prominence of the parietal sulci, bilateral temporal horns and bilateral hippocampal atrophy, which can be seen in patient's with Alzheimer' s disease in the correct clinical setting. Ventricles: No hydrocephalus or displacement. Arteries: No density suggestive of thrombus. Dural sinuses: No abnormal density. Extra-axial spaces : No abnormal density. Foramen magnum: No mass, Chiari malformation, or basilar invagination. Sella: No obvious mass. Paranasal/ mastoid sinuses: Imaged portions unremarkable. Skull/Scalp: No lytic or blastic lesions. No fractures. IMPRESSION: 1. No acute intracranial hemorrhage or cortical infarct. 2. 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 Signed by: Dr. Tahira Vora M.D. on 07/30/2018 8:34 PM Dictated By: TAHIRA VORA MD 33 Transcribed By: MELISSA on 07/30/182033 COPY TO: FAUSTINA KWONG MD CT ABDOMEN/PELVIS W 2018-07-30 20:29:00 [place] [address] Patient Name: RISHI JOHNS MR #: [id number] : 1930 Age/Sex: 87/M Req #: [id number] Adm Physician: Ordered by: FAUSTINA KWONG MD Report #: [id number] Location: Room/Bed: __ Procedure: [id number] CT/CT ABDOMEN/PELVIS W Exam Date: 07/30/18 Exam Time: 1999 REPORT STATUS: Signed CT Abdomen And Pelvis with Intravenous Contrast INDICATION: Altered level of consciousness, left lower quadrant pain TECHNIQUE: Thin collimation axial images obtained from the diaphragm to the level of the pubic symphysis following the uneventful administration of 100 cc of low osmolar, nonionic intravenous contrast. RADIATION DOSE: Total DLP: 294.2 mGy*cm Estimated effective dose: (DLP x 0.015 x size factor) mSv CTDIvol has been reviewed. It is below the limits set by the Radiation Protocol Committee (RPC). COMPARISON: None. ABDOMEN FINDINGS: Lung Bases : Lung bases are mildly hyperinflated. There is subsegmental atelectasis in the lower lobes. The descending thoracic aorta is ectatic and contains mural plaque. Maximum diameter is 4.1 cm. The heart is enlarged and contains pacemaker wires and coronary artery calcifications. No pericardial or pleural effusions. Liver: Normal attenuation. Unilocular cysts in the left lobe measure up to 5.4 cm. There are subcentimeter cysts in the right lobe. Gallbladder: Present and appears normal. No biliary ductal dilatation. Pancreas: Normal attenuation without mass or ductal dilatation. Spleen: Normal in size. No evidence of mass.. Adrenal Glands: No evidence for mass. Kidneys: Right: Normal enhancement. Several low attenuating cortical lesions measure up to 15 mm. No enhancing lesions. No hydronephrosis. Left: Normal enhancement. A lower pole cyst measures 18 mm. No enhancing lesions. No hydronephrosis. Lymph Nodes: No enlarged abdominal or retroperitoneal lymph nodes.. Aorta: Diffusely ectatic. The infrarenal aorta has a maximum diameter of 4.1 cm. Calcified and noncalcified plaques are present throughout. PELVIS FINDINGS: Bowel: Stomach: Distended with fluid. No mural thickening. Small Bowel: Multiple fluid-filled small bowel loops in the midabdomen measure up to 3.5 cm in diameter. The transition point is in the lower pelvis (axial image 65). There is no associated mass. There is no evidence of pneumatosis. Distal to this, the small bowel loops are collapsed. There is normal mural enhancement. Large Bowel: Chain sutures in the rectosigmoid colon. The large bowel is concentrated in the right hemiabdomen suggestive of hemicolectomy and primary anastomosis. A few scattered diverticula are present without associated inflammation. Appendix: Not visualized. There is a linear calcification or chain sutures at the base of the cecum. Bladder: The gonsalez are diffusely thickened. A Dunn catheter is present with intraluminal air. The prostate gland measures 5.2 x 5.5 cm. Small amount of pelvic ascites. No loculated fluid collection. No free air. Bones: Scoliosis of the lumbar spine convex to the right with superimposed degenerative changes. There are no lytic or blastic lesions. Soft tissues: Unremarkable. IMPRESSION: 1. Dilated small bowel loops suggestive of high-grade partial small bowel obstruction, possibly due to adhesion. No CT evidence of obstructing mass. 2. 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 3. Low attenuating hepatic and renal lesions are likely cysts. 4. Prostate hypertrophy and bladder wall thickening suggestive of outlet obstruction. 5. Postoperative changes of the large bowel. Mild burden of diverticulosis coli. Nonvisualization of the appendix. Please correlate with surgical history of appendectomy. Signed by: Dr. Edd Posada MD on 07/30/2018 8:39 PM Dictated By: EDD POSADA MD 38 Transcribed By: MELISSA on 10/06 COPY TO: FAUSTINA KWONG MD CHEST SINGLE (PORTABLE) 2018-07-30 20:27:00 [place] [address] Patient Name: RISHI JOHNS MR #: [id number] : 1930 Age/Sex: 87/ M Req #: [id number] Adm Physician: Ordered by: FAUSTINA KWONG MD Report #: [id number] Location: ER Room/Bed: Procedure: [id number] DX/CHEST SINGLE (PORTABLE) Exam Date: 10/06 Exam Time: 1999 REPORT STATUS: Signed EXAMINATION: CHEST SINGLE (PORTABLE) COMPARISON: Chest x-ray 2016 INDICATION: Shortness of breath DISCUSSION: Frontal view of the chest obtained at 2010 hours. HEART AND MEDIASTINUM: Stable cardiomegaly. Pacemaker wires are stable terminating in the right atrium and right ventricle. LUNGS: Pulmonary vascular markings are normal. No mass. No pneumonia or pulmonary edema. PLEURA: No pleural effusion or pneumothorax. BONES AND SOFT TISSUES: No focal osseous lesion. The soft tissues are normal. IMPRESSION: Stable cardiomegaly. No vascular congestion. No focal osseous lesions. Signed by: Dr. Edd Posada MD on 07/30/2018 8:28 PM Dictated By: EDD POSADA MD 27 Transcribed By: MELISSA on 10/06 COPY TO: FAUSTINA KWONG MD CT BRAIN WO [place] [address] Patient Name: RISHI JOHNS MR #: [id number] : 1930 Age/Sex: 87/M Req #: [id number] Adm Physician: Ordered by: GLORIA BLACKWELL MD Report #: [id number] Location: CT Room/Bed: Procedure: [id number] CT/CT BRAIN WO Exam Date: 02/04/18 Exam Time: 1410 REPORT STATUS: Signed EXAMINATION: Head CT HISTORY: Status post fall. Head trauma, pain, dizziness COMPARISON: Head CT on 08/14/2017 TECHNIQUE: Multidetector axial images were obtained without contrast from the foramen magnum to the vertex . The images were reconstructed using brain and bone algorithms. Thin section brain images were reformatted into coronal and sagittal planes. Intravenous contrast: None. Motion/streaking artifact limits the evaluation of the skull base and posterior cranial fossa. FINDINGS: Parenchyma: 1. 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 Mild chronic microvascular ischemic changes mostly in the bilateral subinsular regions. Otherwise no areas of abnormal density in the brain parenchyma. 2. No mass or hemorrhage. No CT evidence of acute territorial vascular insult. Extra-axial spaces:No abnormal density. No extra-axial fluid collections Brain volume: Generalized brain volume loss with mild bilateral medial temporal/hippocampal predominance, which can be seen in patients with Alzheimer's disease, only in the appropriate clinical setting. Ventricles: No hydrocephalus or displacement. Arteries: No density suggestive of thrombus. Dural sinuses: No abnormal density. Extra-axial spaces: No abnormal density. Foramen magnum: No mass, Chiari malformation, or basilar invagination. Sella: No obvious mass. Paranasal/mastoid sinuses : Imaged portions unremarkable. Skull/Scalp: No lytic or blastic lesions. No fractures. IMPRESSION: 1. No acute posttraumatic intracranial abnormality, particularly no hemorrhage. 2. 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 Signed by: Dr. Tahira Vora M.D. on 02/04/2018 3:29 PM Dictated By: TAHIRA VORA MD 1529 Transcribed By: MELISSA on 02/04/18 1529 COPY TO: GLORIA BLACKWELL MD ECHO COMPLETE (ECHOCARDIOGRAM) [place] [address] Patient Name : RISHI JOHNS MR #: [id number] : 1930 Age/Sex: 86/M Adm Physician : GLORIA BLACKWELL MD Admit Date : 08/14/17 Location : MED/SURG3 Room/Bed : [facility] [place] REPORT: Cardiology Report DATE OF STUDY: August 14, 2017 ECHOCARDIOGRAM M-MODE: Top normal aortic root size. Borderline dilated left ventricle. Left ventricular hypertrophy. Diminished left ventricular contractility. Aortic sclerosis. Normal mitral and tricuspid valves. No pericardial effusion. SECTOR SCAN: Top normal aortic root size measuring approximately 3.7 cm. Left ventricular hypertrophy. Top normal left ventricular size. Ejection fraction is approximately 35% to 40%. Aortic valve is mildly sclerotic. Mitral and tricuspid valves are grossly normal. There is sclerosis of the mitral valve annulus. There is no pericardial effusion. Pacemaker is present. CARDIAC DOPPLER STUDY WITH COLOR: Two plus aortic regurgitation, 1+ mitral regurgitation. Trace tricuspid regurgitation. Trace pulmonic regurgitation. CONCLUSIONS 1. Left ventricular hypertrophy with borderline dilated left ventricle with diminished left ventricular contractility. Estimated ejection fraction 35% to 40%. 2. Aortic sclerosis with moderate aortic regurgitation. 3. Sclerosis of the mitral valve annulus with mild mitral regurgitation. 4. Trace tricuspid regurgitation with pacemaker present. 5. Top normal aortic root size measuring 3.7 cm. 6. Trace pulmonic regurgitation. DD: 10:22 Job#: [id number] cc: GLORIA BLACKWELL MD Signature Date Dictated By: VIPUL CRUM MD Transcribed By: EDS on 08/15/17 <Electronically signed by VIPUL CRUM MD><< Signature on File>>08/21/17 0864 COPY TO: CAROTID DOPPLER [place] [id number] Patient Name : RISHI JOHNS MR #: [id number] : 1930 Age/Sex: 86/M Adm Physician : GLORIA BLACKWELL MD Admit Date : 08/14/17 Location : MED/SURG3 Room/Bed : 295-1 ____ REPORT: Cardiology Report DATE OF STUDY: August 15, 2017 DOPPLER SCAN OF CAROTIDS Left and right carotid arteries were interrogated using the duplex scanning method. Left carotid artery shows mild intimal thickening and plaquing without high-grade stenosis or flow impairment. Left vertebral flow appears to be antegrade. Right carotid artery shows mild intimal thickening and plaquing without high-grade stenosis or flow impairment. Right vertebral flow was not well visualized. CONCLUSION 1. Nonvisualized right vertebral artery, cannot exclude occlusion. 2. No high-grade stenosis or flow impairment bilaterally. 3. Mild intimal thickening and plaquing bilaterally. 4. Left vertebral flow appears to be in normal direction. Job#: [id number] cc: GLORIA BLACKWELL MD Signature Date Dictated By: VIPUL CRUM MD Transcribed By: [facility] on 08/16/17 <Electronically signed by VIPUL CRUM MD><<Signature on File>>09/14/17 1015 COPY TO: CHEST SINGLE (PORTABLE) [place] [address] Patient Name: RISHI JOHNS MR #: [id number] : 1930 Age/Sex: 86/M Req #: [id number] Adm Physician: Ordered by: ANDRIY UMANZOR MD Report #: [id number] Location: Room/Bed: Procedure: [id number] DX/CHEST SINGLE (PORTABLE) Exam Date: 08/14/17 Exam Time: 2119 REPORT STATUS: Signed EXAMINATION: CHEST SINGLE (PORTABLE) INDICATION: Cough. COMPARISON: None FINDINGS: TUBES and LINES: Left-sided pacemaker with leads overlying the right atrium and right ventricle LUNGS: Lungs are not well inflated. There are bibasilar atelectasis. There is mild prominence of the central pulmonary vasculature, consistent with pulmonary venous congestion. PLEURA: No pleural effusion or pneumothorax. HEART AND MEDIASTINUM: Cardiac size is moderately enlarged. There are atherosclerotic calcifications within the aorta. BONES AND SOFT TISSUES: No acute osseous lesion. Soft tissues are unremarkable. UPPER ABDOMEN: No free air under the diaphragm. IMPRESSION: 1. No acute thoracic abnormality. 2. Mild cardiogenic central vascular congestion. Signed by: Dr. Jay Arevalo M.D. on 08/14/2017 9:35 PM Dictated By: JAY VELEZ MD 34 Transcribed By: MELISSA on 08/14/172134 COPY TO: ANDRIY UMANZOR MD CT BRAIN WO [place] [address] Patient Name: RISHI JOHNS MR #: [id number] : 1930 Age/Sex: 86/M Req #: [id number] Adm Physician: Ordered by: ROMY MOLINA MD Report #: [id number] Location: ER Room/Bed: Procedure: [id number] CT/CT BRAIN WO Exam Date: 08/14/17 Exam Time: 1457 REPORT STATUS: Signed Examination: CT BRAIN WITHOUT CONTRAST History:Fall. Head injury. Comparison studies:Head CT August 30, 2016. Technique: Axial images were obtained from the skull base to the vertex. Coronal and sagittal images reconstructed from the axial data. Intravenous contrast: None Findings: Scalp: No abnormalities. Bones: No fractures, blastic or lytic lesions. Brain sulci: Mild volume loss for age. Ventricles: No hydrocephalus. Extra-axial space: No abnormalities. Parenchyma: Again demonstrated are subtle patchy areas of hypoattenuation in the periventricular and subcortical white matter, nonspecific. Chronic bilateral lacunar infarcts are again demonstrated in the subinsular cortices. There is a new area of hypoattenuation the anteromedial right thalamus. No masses, hemorrhage, or acute cortical based vascular insults. Sellar/suprasellar region: No abnormalities. Craniocervical junction: Patent foramen magnum. No Chiari one malformation. Incidental findings: Atherosclerotic calcification of the cavernous and supraclinoid internal carotid arteries. Impression: 1. New age- indeterminate infarct in the right anteromedial thalamus when compared to head CT performed August 30, 2016. 2. No new hemorrhage. 3. Unchanged mild chronic microvascular ischemic change. 4. Chronic lacunar infarcts, as above. 5. Unchanged mild volume loss for age. Signed by: Dr. Estela Nails M.D. on 08/14/2017 3:27 PM Dictated By: ESTELA BOWMAN MD [id number] Transcribed By: MELISSA on 08/14/17 1527 COPY TO: ROMY MOLINA MD
--- NOTE | 2018-09-15 19:08 | Discharge Summary ---
This patient came in the hospital for gastroenteritis and small-bowel obstruction. Initially, patient's NG tube was put in. Leukocytosis was . The patient was started on Flagyl and Levaquin and consult with Dr. Torres was done. Urine culture was negative. Blood culture were negative. NG tube was . The patient after 2 days NG tube was removed. The patient was feeling much better. Bowel sounds were better and continued with antibiotic. Anemia was stable. White count was normalized with antibiotic. Once everything was better and the patient had gas and flatus and bowel movements, the patient was discharged home to SNF for strengthening and also, for continued monitoring. FINAL DIAGNOSES 1. Infectious gastroenteritis. 2. Leukocytosis. 3. Acute mental status changes. 4. History of dementia. 5. Small-bowel obstruction. Patient was asked to follow up with me in about 2 weeks' time after discharge from longterm or SNF and continue on clear liquid diet and slowly progress on diet. For further information, look in the chart. For medicines on discharge, look in the medical reconciliation sheet. GLORIA BLACKWELL MD Job#: [id number] CQ
--- NOTE | 2018-09-25 17:49 | Consultation ---
DATE OF CONSULTATION: July 31, 2018 SURGICAL CONSULTATION ADMITTING PHYSICIAN: Dr. Mcneal. REASON FOR CONSULTATION: Abdominal pain. HISTORY OF PRESENT ILLNESS: This 87-year-old male was admitted to the hospital after presenting to the emergency room, complaining of some crampy abdominal pain associated with nausea and vomiting. Patient was also noted in the ER to be hypotensive and have syncopal type symptoms. There were no symptoms similar to this in the past. PAST MEDICAL HISTORY: Remarkable for hypothyroidism, hypertension and psychiatric illness. ALLERGIES: NONE. REVIEW OF SYSTEMS: Otherwise unremarkable. MEDICATIONS: Please refer to MAR. PHYSICAL EXAMINATION: GENERAL: At the time that we saw the patient revealed a male lying in bed in no acute distress. VITAL SIGNS: He was afebrile. His vital signs were stable. HEENT: Showed no acute inflammation. NECK: No nodes, masses or bruits. LUNGS: Clear to auscultation. HEART: Regular rate and rhythm. ABDOMEN: Was diffusely tender. There was no guarding. There was no rebound. There were no palpable masses. Bowel sounds were hyperactive. EXTREMITIES: Good pulses bilaterally. ASSESSMENT: Probable gastroenteritis. Doubt small-bowel obstruction. There is certainly no surgical abdomen at this time. PLAN: Will be n.p.o., hydration, and NG tube along with antibiotics; and if patient improves, he may be able to be discharged fairly quickly. Thank you very much for asking me to see this patient. Job#: [id number] YANA
== END 2018-08-06 12:15 | DRG 389 ==
LOC: ER 18:14 → ERHOLD 21:07 → MED/SURG3 21:59
PROVIDERS: ADMIT Family Medicine; ATTEND Family Medicine
DX: K56.50 Intestinal adhesions [bands], unspecified as to partial versus complete obstruction (principal); A09 Infectious gastroenteritis and colitis, unspecified; F03.91 Unspecified dementia, unspecified severity, with behavioral disturbance; F05 Delirium due to known physiological condition; E03.9 Hypothyroidism, unspecified; I10 Essential (primary) hypertension; F43.10 Post-traumatic stress disorder, unspecified; Z79.52 Long term (current) use of systemic steroids; F03.90 Unspecified dementia, unspecified severity, without behavioral disturbance, psychotic disturbance, mood disturbance, and anxiety; D64.9 Anemia, unspecified; Z95.0 Presence of cardiac pacemaker; N40.0 Benign prostatic hyperplasia without lower urinary tract symptoms; K57.90 Diverticulosis of intestine, part unspecified, without perforation or abscess without bleeding; I51.7 Cardiomegaly
CPT/HCPCS: 36415; 51700; 70450; 71045; 74018; 74022; 74177; 80048; 80053; 81001; 82550; 82553; 82948; 83605; 83690; 83735; 83880; 84100; 84443; 84484; 85025; 85610; 85730; 87040; 87086; 93005; 96361; 96367; 97139; 99285; J0360; J1956; J2270; J2405; J7030; Q9967